=== PATIENT | female | born 1985 | race Caucasian/White ===

== ENCOUNTER 2017-03-07 06:09 | Emergency (ER) | payer OTHER ==
[~2017-03-07] VITALS: Ht 167.6 cm; Wt 111.5 kg
[~2017-03-07 06:09] MED LIST: CEPH-443 PO; FOL8 PO; METO-429 PO; PREN-39 PO
[2017-03-07 06:15] VITALS: Ht 167.6 cm; Wt 111.5 kg
--- NOTE | 2017-03-07 07:05 | RADRPT ---
PROCEDURE: XR Forearm. CLINICAL INDICATION: trauma TECHNIQUE: AP and lateral views of the right forearm were obtained. COMPARISON: No prior studies are available for comparison. FINDINGS: No fracture or dislocation is seen. No definite lytic or blastic bony lesion. No definite soft tis angelina abnormality. No definite calcification or foreign body. IMPRESSION: No definite acute bony abnormality. RPTAT: [facility] Physician Anish Date Time Electronically viewed and signed by Tatyana Rodriguez Physician on 03/07/2017 07:05 ALAN/
--- NOTE | 2017-03-07 07:08 | RADRPT ---
PROCEDURE: Right hand x-ray CLINICAL INDICATION: trauma TECHNIQUE: AP, lateral and oblique views were obtained. COMPARISON: None FINDINGS: No definite fracture or dislocation is seen. Bone mineralization is preserved. No marked degenerat hira change. No abnormal soft tissue calcifications.. Incidental bone island of the capitate. IMPRESSION: No definite acute bony abnormality. RPTAT: [facility] Physician Anish Date Time Electronically viewed and signed by Tatyana Rodriguez Physician on 03/07/2017 07:07 ALAN/
[2017-03-07] MEDS ORDERED: IBUP-1542 PO (07:17)
--- NOTE | 2017-03-07 07:19 | ERD ---
ER Documentation Chief Complaint Date/Time DATE: 03/07/17 TIME: 07:18 Chief Complaint right hand pain s/p injury at work HPI is 32-year-old female presents with right hand and distal forearm pain after heavy object fell on her right upper extremity yesterday while at work. She states she has full range of motion so she does not think it is broken but she is not sure. Denies any numbness or tingling. She took Motrin. No head injury or KO. No other complaints. ROS All systems reviewed and are negative except as per history of present illness. Medications Home Meds Active Scripts Ibuprofen* (Motrin*) 600 Mg Tab, 600 MG PO Q6, #30 TAB Prov:JAJA GARRISON PA-C 03/07/17 Cephalexin* (Keflex*) 500 Mg Capsule, 500 MG PO QID for 7 Days, CAP Prov:JAZMÍN LEACH PA-C 12/25/15 Metoprolol Tartrate* (Lopressor*) 50 Mg Tab, 50 MG PO BID, #60 TAB Prov:JAZMÍN LEACH PA-C 12/25/15 Reported Medications Folic Acid* (Folic Acid*) 0.8 Mg Tablet, 0.8 MG PO DAILY, TAB 08/28/15 Vits W-Ca,Fe,Fa(<1MG) ( Vitamins) 1 Tab Tablet, 1 TAB PO DAILY , TAB 08/28/15 Allergies Allergies: Coded Allergies: No Known Allergy (Unverified , 03/07/17) PMhx/Soc History of Surgery: No Anesthesia Reaction: No Hx Neurological Disorder: No Hx Respiratory Disorders: No Hx Cardiac Disorders: No Hx Psychiatric Problems: No Hx Miscellaneous Medical Probl: Yes (left ovarian cyst,gestational diabetes, gestational HTN) Hx Alcohol Use: No Hx Substance Use: No Hx Tobacco Use: No FmHx Family History: No diabetes Physical Exam Vitals Vital Signs Date Time Temp Pulse Resp B/P Pulse Ox O2 Delivery O2 Flow Rate FiO2 03/07/17 06:15 98.1 73 18 138/93 100 Physical Exam INITIAL VITAL SIGNS: Reviewed by me GENERAL: Awake, alert and oriented x 4, well appearing, nontoxic, speaking in full sentences. No acute distress NECK: Supple. No masses. Full range of motion. No meningismus. No midline tenderness. RESPIRATORY: Clear to auscultation bilaterally. Symmetric chest wall rise. No wheezing or rales. No accessory muscle use. CV: Regular rate and rhythm. No murmurs, rubs, or gallops. EXTREMITIES: No clubbing or cyanosis. No edema. Moving all extremities normally.No tenderness throughout right upper extremity, sensation to light touch is intact, radial pulse 2+, transportation attendant strength 5 out of 5 Procedures/MDM Patient has right forearm and hand pain after trauma yesterday. She is neurovascularly intact. X-rays were negative. She is discharged with Motrin. Patient counseled regarding my diagnostic impression and care plan. Prior to discharge all questions answered. Pt agrees with treatment plan and understands strict return precautions. Pt is instructed to follow up with primary care provider within 24-48 hours. Precautionary instructions provided including instructions to return to the ER if not improving or for any worsening or changing symptoms or concerns. Departure Diagnosis: Primary Impression: Hand contusion Condition: Stable Patient Instructions: Crush Injury, Hand/Finger Additional Instructions: Call your primary care doctor TOMORROW for an appointment during the next 1-2 days.See the doctor sooner or return here if your condition worsens before your appointment time. JAJA GARRISON PA-C Mar 07, 2017 07:19
== END 2017-03-07 08:00 | disposition home or self-care (01) ==
LOC: FTE 06:09
DX: S60.221A Contusion of right hand, initial encounter (principal); W20.8XXA Other cause of strike by thrown, projected or falling object, initial encounter; Y92.9 Unspecified place or not applicable

== ENCOUNTER 2018-01-18 04:52 | Emergency (ER) | END 2018-01-18 07:43 | disposition home or self-care (01) ==

== ENCOUNTER 2018-02-20 16:40 | Emergency (ER) | END 2018-02-20 21:05 | disposition home or self-care (01) ==

== ENCOUNTER 2018-05-03 21:08 | Outpatient (CLI) | END 2018-05-03 22:06 | disposition home or self-care (01) ==

== ENCOUNTER 2018-06-14 10:49 | Outpatient (CLI) | END 2018-06-14 13:00 | disposition home or self-care (01) ==

== ENCOUNTER 2018-06-17 11:06 | Outpatient (CLI) | payer OTHER ==
[~2018-06-17] VITALS: Ht 165.1 cm; Wt 160.0 kg
[~2018-06-17 11:06] MED LIST changes: -CEPH-443 PO; -FOL8 PO; -METO-429 PO
[2018-06-17 11:31] VITALS: Ht 165.1 cm; Wt 160.0 kg
[2018-06-17 11:32] VITALS: BP 114/70; PULSE 81; RESP 20
--- NOTE | 2018-06-17 13:13 | TRIAGE ---
OB Triage Datetime Report Generated by CPN: 06/17/2018 13:13 Datetime: 06/17/2018 11:34 Time of Arrival: 06/17/2018 11:00 EGA: 30.4 Arrived By: Ambulatory Arrived From: Home Chief Complaint: pt here for repeat ffn pt wa here on 06/14 and had a positive ffn per order dr arce pt was dcd home and told to return today for repeat ffn Movement: Decreased Rupture of Membranes: Denies Vaginal Bleeding: None Vaginal Discharge: Denies Recent Sexual Intercouse: Denies Abdominal Trauma: Not Applicable Patient Complaints: None Provider Notified: dsr yazmin Maternal Assessment Level of Consciousness: Fully Conscious Maternal Assessment Level of Consciousness: Fully Conscious DTR's/Clonus: DTRs 2+ DTR's/Clonus: DTRs 2+; No Clonus Headache: Denies Headache: Denies Blurred Vision: No Blurred Vision: No Respiratory Effort: Unlabored; Regular Rhythm; Equal Expansion Breath Sounds, Left: Clear and Equal Breath Sounds, Right: Clear and Equal Nausea/Vomiting: Present Nausea/Vomiting: Denies RUQ Epigastric Pain: Denies RUQ Epigastric Pain: Denies Facial Edema: None Facial Edema: None Temperature Route: Axillary Fall Risk Assessment History of Falling: (0) No Secondary Diagnosis: (0) No Ambulatory Aid: (0) Bedrest/Nurse Assist IV Therapy: (0) No Gait: (0) Normal/Bedrest/Immobile Mental Status: (0) Oriented to Own Ability Fall Score: 0 Fall Risk Score Definition: No Risk: No action required Labor Evaluation Frequency: NONE Pattern: Normal: <= 5 Contractions in 10 Minutes Heart Rate FHR Baseline Rate: 155 Monitor Mode: External US FHR Baseline Changes: No Baseline Change Variability: Moderate 6-25 bpm Accelerations: 15X15 Decelerations: None Category: Category I Pain Assessment Pain Scale: 0 Pain Presence: None/Denies Pain Type: N/A Pain Goal: 0 Vaginal Exam Membrane Status: Intact Datetime: 06/14/2018 11:22 EGA: 30.1 Datetime: 06/14/2018 11:06 Fall Score: 0 Fall Risk Score Definition: No Risk: No action required Datetime: 06/14/2018 10:59 EGA: 30.1 Datetime: 05/03/2018 21:43 EGA: 24.1 Datetime: 05/03/2018 21:28 Fall Score: 0 Fall Risk Score Definition: No Risk: No action required
--- NOTE | 2018-06-17 13:50 | PN ---
Triage Information Date/Time 06/17/18 Reason for visit: for repeat FFN Weeks of Gestation 30w4d /Para Diabetes: none Hypertention: none Additional information here for f/u FFN since previous visit FFN was pos Objective Vital Signs Date Temp Pulse Resp B/P (MAP) Pulse Ox O2 O2 Flow FiO2 Time Delivery Rate 06/17/18 98.2 81 20 114/70 Room Air 11:32 (85) Heart Rate: 150's Heart Rate Comments CAT I tracing Results/Medications Results 24 hrs Laboratory Tests Test 06/17/18 11:25 Fibronectin NEGATIVE Imaging Results BPP 8/8 NADIRA 15cm Disposition: Discharge Assessment/Plan A [id number].[id number] FFN f/u P discharge home RTH prn RANJEET TELLEZ MD Jun 17, 2018 13:50
== END 2018-06-17 13:00 | disposition home or self-care (01) ==
LOC: OBT 11:06 → L-D 11:08 → OBT 13:00
PROVIDERS: ATTEND Obstetrics & Gynecology
DX: O28.1 Abnormal biochemical finding on antenatal screening of mother (principal); Z3A.30 30 weeks gestation of pregnancy
CPT/HCPCS: 76818; 82731; Z7500; G0463

== ENCOUNTER 2018-07-02 11:26 | Outpatient (CLI) | payer OTHER ==
[~2018-07-02] VITALS: Ht 165.1 cm; Wt 117.3 kg
[2018-07-02 11:49] VITALS: Ht 165.1 cm; Wt 117.3 kg
--- NOTE | 2018-07-02 13:22 | PN ---
Triage Information Date/Time Reason for visit: Uterine contractions Weeks of Gestation 32+ /Para 2/1 Diabetes: none Hypertention: none Objective Heart Rate: 140's Contractions: None Results/Medications Results 24 hrs Laboratory Tests Test 07/02/18 12:05 07/02/18 12:10 Fibronectin NEGATIVE Urine Color YELLOW Urine Clarity CLOUDY A Urine pH 6.0 Urine Specific [place] 1.026 Urine Ketones NEGATIVE Urine Nitrite NEGATIVE Urine Bilirubin NEGATIVE Urine Urobilinogen NEGATIVE Urine Leukocyte Esterase TRACE A Urine Microscopic RBC 4 Urine Microscopic WBC 4 Urine Squamous Epithelial Cells MODERATE Urine Bacteria FEW A Urine Hemoglobin NEGATIVE Urine Glucose NEGATIVE Urine Total Protein NEGATIVE Disposition: Discharge Assessment/Plan CXL3.9 cm FFN neg Discharge with precautions Questions answered Precautions discussed DILSHAD PINEDA M.D. Jul 02, 2018 13:22
--- NOTE | 2018-07-02 14:29 | TRIAGE ---
OB Triage Datetime Report Generated by CPN: 07/02/2018 14:28 Datetime: 07/02/2018 14:00 Stage of : OB Triage Maternal Assessment Level of Consciousness: Fully Conscious DTR's/Clonus: DTRs 1+ Headache: Denies Breath Sounds, Left: Clear and Equal Breath Sounds, Right: Clear and Equal Nausea/Vomiting: Denies RUQ Epigastric Pain: Denies Labor Evaluation Frequency: NONE Monitor Mode: External Resting Tone [place]: Relaxed Heart Rate FHR Baseline Rate: 140 Monitor Mode: External US Variability: Moderate 6-25 bpm Accelerations: 15X15 Decelerations: None Category: Category I Pain Assessment Pain Scale: 0 Pain Goal: 3 Vaginal Exam Membrane Status: Intact Datetime: 07/02/2018 13:00 Stage of : OB Triage Maternal Assessment Level of Consciousness: Fully Conscious DTR's/Clonus: DTRs 1+ Headache: Denies Breath Sounds, Left: Clear and Equal Breath Sounds, Right: Clear and Equal Nausea/Vomiting: Denies RUQ Epigastric Pain: Denies Monitor Mode: External Resting Tone [place]: Relaxed Heart Rate FHR Baseline Rate: 140 Monitor Mode: External US Variability: Moderate 6-25 bpm Accelerations: 15X15 Decelerations: None Category: Category I Pain Assessment Pain Scale: 5 Pain Presence: Intermittent Pain Type: Cramping Pain Location: Back Pain Goal: 3 Vaginal Exam Membrane Status: Intact Datetime: 07/02/2018 12:00 Maternal Assessment Level of Consciousness: Fully Conscious DTR's/Clonus: DTRs 1+ Headache: Denies Blurred Vision: No Respiratory Effort: Unlabored Breath Sounds, Left: Clear and Equal Breath Sounds, Right: Clear and Equal Nausea/Vomiting: Denies RUQ Epigastric Pain: Denies Facial Edema: None Labor Evaluation Frequency: X2 Monitor Mode: External Duration (sec)2399: 50-60 Quality: Mild Pattern: Normal: <= 5 Contractions in 10 Minutes Resting Tone [place]: Relaxed Heart Rate FHR Baseline Rate: 140 Monitor Mode: External US Variability: Moderate 6-25 bpm Accelerations: 15X15 Decelerations: None Category: Category I Pain Assessment Pain Scale: 5 Pain Presence: Intermittent Pain Type: Cramping Pain Location: Back Pain Goal: 3 Vaginal Exam Membrane Status: Intact Datetime: 07/02/2018 11:30 Assessment Type: Triage Maternal Assessment Level of Consciousness: Fully Conscious DTR's/Clonus: DTRs 2+; No Clonus Headache: Denies Blurred Vision: No Respiratory Effort: Unlabored; Regular Rhythm; Equal Expansion Breath Sounds, Left: Clear and Equal Breath Sounds, Right: Clear and Equal Nausea/Vomiting: Denies RUQ Epigastric Pain: Denies Lower Extremities Edema: None Degree: None Upper Extremities Edema: None Degree: None Facial Edema: None Fall Risk Assessment History of Falling: (0) No Secondary Diagnosis: (0) No Ambulatory Aid: (0) Bedrest/Nurse Assist IV Therapy: (0) No Gait: (0) Normal/Bedrest/Immobile Mental Status: (0) Oriented to Own Ability Fall Score: 0 Fall Risk Score Definition: No Risk: No action required Datetime: 07/02/2018 11:20 Time of Arrival: 07/02/2018 11:20 EGA: 32.5 Arrived By: Ambulatory Arrived From: Home Chief Complaint: PT CAME IN C/O HAVING SOME UC'S AND C/O FEELING SOME PULLING OF HER UMBILICUS SINC E THIS AM. DENIES ANY BLEEDING AND STATES + MOVE,ENT Movement: Present Contractions: Denies/Absent Rupture of Membranes: Denies Vaginal Discharge: Denies Recent Sexual Intercouse: Denies Abdominal Trauma: Not Applicable Additional Patient Complaints: NONE Time Provider Notified: 07/02/2018 11:50 Provider Notified: GODWIN Initial Plan: MONITOR Datetime: 06/17/2018 11:34 EGA: 30.4 Fall Score: 0 Fall Risk Score Definition: No Risk: No action required Datetime: 06/14/2018 11:22 EGA: 30.1 Datetime: 06/14/2018 11:06 Fall Score: 0 Fall Risk Score Definition: No Risk: No action required Datetime: 06/14/2018 10:59 EGA: 30.1 Datetime: 05/03/2018 21:43 EGA: 24.1 Datetime: 05/03/2018 21:28 Fall Score: 0 Fall Risk Score Definition: No Risk: No action required
== END 2018-07-02 13:24 | disposition home or self-care (01) ==
LOC: OBT 11:26 → L-D 11:27 → OBT 13:24
PROVIDERS: ATTEND Obstetrics & Gynecology
DX: O62.9 Abnormality of forces of labor, unspecified (principal); Z3A.32 32 weeks gestation of pregnancy
CPT/HCPCS: 76817; 76818; 81001; 82731; Z7500; G0463

== ENCOUNTER 2018-07-10 11:35 | Outpatient (CLI) | payer OTHER ==
[~2018-07-10] VITALS: Ht 165.1 cm; Wt 118.4 kg
[2018-07-10 11:47] VITALS: BP 123/76; PULSE 88; RESP 19; Ht 165.1 cm; Wt 118.4 kg
[2018-07-10] MEDS ORDERED: ACETAMINOPHEN 325 MG TAB ONE (12:24)
[2018-07-10] MEDS ORDERED: ACETAMINOPHEN 325 MG TAB PO ONE (12:30)
--- NOTE | 2018-07-10 13:40 | PN ---
Triage Information Date/Time Reason for visit: R/o PIH Weeks of Gestation 32+ /Para n/a Diabetes: none Hypertention: none Objective Vital Signs Date Temp Pulse Resp B/P (MAP) Pulse Ox O2 O2 Flow FiO2 Time Delivery Rate 07/10/18 98.2 88 19 123/76 Room Air 11:47 (92) Heart Rate: 140's Contractions: None Results/Medications Result Diagram: 07/10/18 1200 07/10/18 1200 Results 24 hrs Laboratory Tests Test 07/10/18 12:00 White Blood Count 8.9 # Red Blood Count 3.87 L Hemoglobin 11.7 L Hematocrit 35.3 L Mean Corpuscular Volume 91.2 Mean Corpuscular Hemoglobin 30.2 Mean Corpuscular Hemoglobin Concent 33.1 Red Cell Distribution Width 12.9 Platelet Count 282 Mean Platelet Volume 9.7 Immature Granulocytes % 1.000 H Neutrophils % 77.5 H Lymphocytes % 15.1 Monocytes % 5.0 Eosinophils % 1.2 Basophils % 0.2 Nucleated Red Blood Cells % 0.0 Immature Granulocytes # 0.090 H Neutrophils # 6.9 Lymphocytes # 1.3 Monocytes # 0.4 Eosinophils # 0.1 Basophils # 0.0 Nucleated Red Blood Cells # 0.0 Prothrombin Time 12.7 Prothrombin Time Ratio 1.0 INR International Normalized Ratio 0.94 Activated Partial Thromboplast Time 26.6 Urine Color YELLOW Urine Clarity CLOUDY A Urine pH 7.0 Urine Specific [place] 1.012 Urine Ketones NEGATIVE Urine Nitrite NEGATIVE Urine Bilirubin NEGATIVE Urine Urobilinogen NEGATIVE Urine Leukocyte Esterase 2+ H Urine Microscopic RBC 2 Urine Microscopic WBC 9 H Urine Squamous Epithelial Cells MANY A Urine Renal Epithelial Cells FEW A Urine Bacteria MANY A Urine Mucus FEW A Urine Hemoglobin NEGATIVE Urine Glucose NEGATIVE Urine Total Protein NEGATIVE Sodium Level 139 Potassium Level 4.6 Chloride Level 103 Carbon Dioxide Level 25 Anion Gap 11 Blood Urea Nitrogen 8 Creatinine 0.55 Est Glomerular Filtrat Rate mL/min > 60 Glucose Level 151 Uric Acid 6.2 Calcium Level 9.4 Total Bilirubin 0.2 Direct Bilirubin 0.00 Indirect Bilirubin 0.2 Aspartate Amino Transf (AST/SGOT) 17 Alanine Aminotransferase (ALT/SGPT) 15 Alkaline Phosphatase 74 Total Protein 7.2 Albumin 3.7 Globulin 3.50 H Albumin/Globulin Ratio 1.05 Disposition: Discharge Assessment/Plan [facility] 04/05 Labs reviewed Precautions discussed 24 hr urine collection -->Discharged with precautions --->Questions answered -->Follow up with provider DILSHAD PINEDA M.D. Jul 10, 2018 13:40
--- NOTE | 2018-07-10 13:59 | TRIAGE ---
OB Triage Datetime Report Generated by CPN: 07/10/2018 13:58 Datetime: 07/10/2018 12:15 Labor Evaluation Frequency: 0 Monitor Mode: External Heart Rate FHR Baseline Rate: 145 Monitor Mode: External US FHR Baseline Changes: No Baseline Change Variability: Moderate 6-25 bpm Accelerations: 15X15 Decelerations: None Category: Category I Comments: Dr. Leary was informed of pt's arrival to unit to r/o PIH. Pt c/o headache 10/04. New ord er for PIH labs and tylenol 650mg x1 Pain Presence: None/Denies Datetime: 07/10/2018 11:57 Stage of : OB Triage Assessment Type: Triage Maternal Assessment Level of Consciousness: Fully Conscious DTR's/Clonus: DTRs 2+; No Clonus Blurred Vision: No Respiratory Effort: Unlabored; Regular Rhythm; Equal Expansion Breath Sounds, Left: Clear and Equal Breath Sounds, Right: Clear and Equal Nausea/Vomiting: Denies RUQ Epigastric Pain: Denies Lower Extremities Edema: None Upper Extremities Edema: None Facial Edema: None Temperature Route: Oral Fall Risk Assessment History of Falling: (0) No Secondary Diagnosis: (0) No Ambulatory Aid: (0) Bedrest/Nurse Assist IV Therapy: (0) No Gait: (0) Normal/Bedrest/Immobile Mental Status: (0) Oriented to Own Ability Fall Score: 0 Fall Risk Score Definition: No Risk: No action required Pain Assessment Pain Scale: 4 Pain Presence: Intermittent Pain Type: Ache Pain Location: Head Pain Goal: 5 Pain Relief Measures: Comfort Measures Datetime: 07/10/2018 11:25 Time of Arrival: 07/10/2018 11:25 EGA: 33.6 Arrived By: Ambulatory Arrived From: Dr. Hollins Chief Complaint: Sent from clinic to R/O PI Movement: Present Contractions: Denies/Absent Rupture of Membranes: Denies Vaginal Bleeding: None Vaginal Discharge: Denies Recent Sexual Intercouse: Denies Abdominal Trauma: Not Applicable Patient Complaints: Headache Additional Patient Complaints: headache Time Provider Notified: 07/10/2018 13:07 Provider Notified: GODWIN Initial Plan: NST, BPP, PIH labs Datetime: 07/02/2018 11:30 Fall Score: 0 Fall Risk Score Definition: No Risk: No action required Datetime: 07/02/2018 11:20 EGA: 32.5 Datetime: 06/17/2018 11:34 EGA: 30.4 Fall Score: 0 Fall Risk Score Definition: No Risk: No action required Datetime: 06/14/2018 11:22 EGA: 30.1 Datetime: 06/14/2018 11:06 Fall Score: 0 Fall Risk Score Definition: No Risk: No action required Datetime: 06/14/2018 10:59 EGA: 30.1 Datetime: 05/03/2018 21:43 EGA: 24.1 Datetime: 05/03/2018 21:28 Fall Score: 0 Fall Risk Score Definition: No Risk: No action required
== END 2018-07-10 13:30 | disposition home or self-care (01) ==
LOC: OBT 11:35 → L-D 11:44 → OBT 13:30
PROVIDERS: ATTEND Obstetrics & Gynecology
DX: O13.3 Gestational [pregnancy-induced] hypertension without significant proteinuria, third trimester (principal); Z3A.32 32 weeks gestation of pregnancy
CPT/HCPCS: 76818; 80053; 81001; 84560; 85025; 85610; 85730; Z7500; Z7610; G0463

== ENCOUNTER 2018-08-16 12:00 | Inpatient (IN) | payer OTHER ==
[~2018-08-16] VITALS: Ht 165.1 cm; Wt 121.6 kg
[2018-08-16 13:42] VITALS: Ht 165.1 cm; Wt 121.6 kg
[2018-08-16 13:43] VITALS: BP 133/89; PULSE 86
[2018-08-16] MEDS ORDERED: LACTATED RINGER'S 1,000 ML IV PRN (13:53)
[2018-08-16] MEDS ORDERED: IBUPROFEN 600 MG TAB PO PRN (14:00)
[2018-08-16] MEDS ORDERED: METHYLERGONOVINE 0.2 MG INJ IM PRN (14:00)
[2018-08-16] MEDS ORDERED: OXYTOCIN 30 UNITS/LR 500 ML IV PRN (14:00)
[2018-08-16] MEDS ORDERED: OXYTOCIN 30 UNITS/LR 500 ML IV SCH ×2 (14:00)
[2018-08-16] MEDS ORDERED: MISOPROSTOL 200 MCG TAB PR PRN (14:00)
[2018-08-16] MEDS ORDERED: BUTORPHANOL 2 MG INJ IV PRN (14:00)
[2018-08-16] MEDS ORDERED: OXYCODONE/ASPIRIN (4.88/325) TAB PO PRN (14:00)
[2018-08-16] MEDS ORDERED: LIDOCAINE 1% (MPF) 30 ML INJ INJ PRN (14:00)
[2018-08-16] MEDS ORDERED: CARBOPROST 250 MCG INJ IM PRN (14:00)
[2018-08-16] MEDS: LACTATED RINGER'S 1,000 ML IV SCH ×2 (15:14→22:29)
[2018-08-16] MEDS: OXYTOCIN 30 UNITS/LR 500 ML IV SCH (18:24)
[2018-08-16] MEDS ORDERED: CEFAZOLIN 2 GM/50 ML (PMX) 50 ML IVPB ONE (18:41)
--- NOTE | 2018-08-16 18:45 | PREAC ---
Date/Time of Note Date/Time of Note DATE: 08/16/18 TIME: 18:44 Anesthesia Eval and Record Evaluation Time Pre-Procedure Interview DATE: 08/16/18 TIME: 18:44 Age 33 Sex female NPO: 8 hrs Preoperative diagnosis iup at 38 weeks Planned procedure repeat c section Past Medical History Past Medical History: Includes GI: Obesity Surgery & Anesthesia Issues No known issue Meds Anticoagulation: No Beta Brenda within 24 hr: No Reason Beta Brenda not given: Pt. not on B-Brenda Reported Medications Vits W-Ca,Fe,Fa(<1MG) ( Vitamins) 1 Tab Tablet, 1 TAB PO DAILY, TAB 08/28/15 Current Medications Lactated Ringer's 1,000 ml @ 125 mls/hr Q8H IV Last administered on 08/16/18at 15:14; Admin Dose 125 MLS/HR; Start 08/16/18 at 13:53 Butorphanol Tartrate (Stadol) 2 mg Q2H PRN IV .PAIN; Start 08/16/18 at 14:00 Lidocaine (Xylocaine 1% (Mpf)) 30 ml ONCE PRN INJ .EPISIOTOMY; Start 08/16/18 at 14:00 Oxytocin/Lactated Ringer's 500 ml @ 500 mls/hr ONCE POST IV ; Start 08/16/18 at 14:00 Oxytocin/Lactated Ringer's 500 ml @ 125 mls/hr POST IV ; Start 08/16/18 at 14:00 Ibuprofen (Motrin) 600 mg ONCE PRN PO .PAIN 1-5; Start 08/16/18 at 14:00 Oxycodone/Aspirin (Percodan) 2 tab ONCE PRN PO .PAIN 6-10; Start 08/16/18 at 14:00 Lactated Ringer's 1,000 ml @ 2,000 mls/hr Q30M PRN IV .ANESTHESIA; Start 08/16/18 at 13:53 Oxytocin/Lactated Ringer's 500 ml @ 0 mls/hr ONCE PRN IV .VAGINAL BLEEDING; Start 08/16/18 at 14:00 Methylergonovine Maleate (Methergine) 0.2 mg ONCE PRN IM .VAGINAL BLEEDING; Start 08/16/18 at 14:00 Carboprost Tromethamine (Hemabate) 250 mcg ONCE PRN IM .VAGINAL BLEEDING; Start 08/16/18 at 14:00 Misoprostol (Cytotec) 1,000 mcg ONCE PRN AK .VAGINAL BLEEDING; Start 08/16/18 at 14:00 Oxytocin/Lactated Ringer's 500 ml @ 0 mls/hr Q0M IV Last administered on 08/16/18at 18:24; Admin Dose 1 MLS/HR; Start 08/16/18 at 18:30 Meds reviewed: Yes Allergies Coded Allergies: No Known Allergy (Unverified , 07/10/18) Allergies Reviewed: Yes Labs/Studies Labs Reviewed: Reviewed by anesthesiologist Result Diagram: 08/16/18 1436 08/16/18 1436 Laboratory Tests 08/16/18 14:36 Blood Bank Test 08/16/18 14:36 Antibody Screen NEGATIVE Blood Type B POSITIVE Rh Immune Globulin Candidate NO test: Positive Pre-procedure Exam Last vitals Vital Signs Date Temp Pulse Resp B/P (MAP) Pulse Ox O2 O2 Flow FiO2 Time Delivery Rate 08/16/18 98.5 86 133/89 Room Air 13:43 (104) Airway: Adequate mouth opening, Adequate thyromental dist Mallampati: Mallampati II Teeth: Normal Lung: Normal Heart: Normal ASA Physical Status ASA physical status: 2 Emergency: None Planned Anesthetic Neuraxial: Spinal Planned Pain Management Sub-arachniod narcotics, Parenteral pain med Pre-operative Attestations Prior to commencing anesthesia and surgery, the patient was re-evaluated, there was verification of: *The patient's identity *The results of appropriate recent lab work and preoperative vital signs *The above evaluation not changing prior to induction *Anesthetic plan, risk benefits, alternative and complications discussed with patient/family; questions answered; patient/family understands, accepts and wishes to proceed. JAJA BAZZI Aug 16, 2018 18:45
[2018-08-16] MEDS ORDERED: DEXAMETHASONE 4 MG/ML 1 ML INJ ONE (19:05)
[2018-08-16] MEDS ORDERED: ONDANSETRON 4 MG INJ ONE (19:05)
[2018-08-16] MEDS ORDERED: morphine SULFATE/PF (10 MG/10 ML) INJ ONE (19:26)
[2018-08-16] MEDS ORDERED: FENTAnyl 2MCG/ML-ROPIV 0.2% 100 ML ONE (21:52)
[2018-08-16] MEDS: FENTAnyl 2MCG/ML-ROPIV 0.2% 100 ML BAG EPI SCH (22:29)
[2018-08-16] MEDS ORDERED: DIPHENHYDRAMINE 50 MG INJ IV PRN (22:30)
[2018-08-16] MEDS ORDERED: ONDANSETRON 4 MG INJ IV PRN (22:30)
[2018-08-16] MEDS ORDERED: NALOXONE (0.4 MG/ML) INJ IV PRN (22:30)
[2018-08-17] MEDS: LACTATED RINGER'S 1,000 ML IV SCH ×3 (05:22→21:42)
[2018-08-17] MEDS: FENTAnyl 2MCG/ML-ROPIV 0.2% 100 ML BAG EPI SCH ×3 (06:27→22:49)
--- NOTE | 2018-08-17 11:00 | HP ---
Date/Time of Note Date/Time of Note DATE: 08/17/18 TIME: 10:59 OB - History Hx of Present Chief Complaint: induction for elevated BP in the office : 3 Para: 2 Care: Good Care Ultrasounds: Normal mid trimester US Obstetrical Complications: Pre-eclampsia Medical Complications: None Past Family/Social History * Past Medical, Surgical, Family and Obstetric Histories reviewed from chart. OB Admission Exam Vital Signs Vital Signs Vital Signs Date Temp Pulse Resp B/P (MAP) Pulse Ox O2 O2 Flow FiO2 Time Delivery Rate 08/16/18 98.5 86 133/89 Room Air 13:43 (104) Physical Exam HEENT: WNL Heart: Rhythm Normal Lungs: Clear, Equal Abdomen: WNL Extremities: Normal Reflexes: Normal Cervical Dilatation: 2cm Effacement: 25% Station: Ballotable Membranes: Intact Heart Rate: 120's Accelerations: Accelerations Present Decelerations: No Decelerations Varibility: Moderate Contractions on Admission: 6-10 Minutes Apart Intensity: Mild Last 72 hours Lab Results CBC & BMP 08/16/18 14:36 Liver Function Test 08/16/18 14:36 Alanine Aminotransferase (ALT/SGPT) 17 Albumin 3.3 Alkaline Phosphatase 90 Aspartate Amino Transf (AST/SGOT) 19 Direct Bilirubin 0.00 Total Protein 6.5 OB Assessment/Plan Reason for admission: induction of labor Plan: Induction VIVI CONNELLY MD Aug 17, 2018 11:00
--- NOTE | 2018-08-17 11:02 | QN ---
Documentation Comment attempted to AROM but was unsuccessful due to the blotable head. will continue with pitocin explained the situation to the patient tracing category 1 pitocin is at 13 mu VIVI CONNELLY MD Aug 17, 2018 11:02
[2018-08-18] MEDS: LACTATED RINGER'S 1,000 ML IV SCH ×4 (01:59→23:32)
[2018-08-18] MEDS: OXYTOCIN 30 UNITS/LR 500 ML IV SCH (04:32)
[2018-08-18] MEDS: FENTAnyl 2MCG/ML-ROPIV 0.2% 100 ML BAG EPI SCH ×2 (05:31→13:36)
--- NOTE | 2018-08-18 07:45 | PAC ---
Date/Time of Note Date/Time of Note DATE: 08/18/18 TIME: 07:44 Post-Anesthesia Notes Post-Anesthesia Note Last documented vital signs Vital Signs Date Temp Pulse Resp B/P (MAP) Pulse Ox O2 O2 Flow FiO2 Time Delivery Rate 08/17/18 98.5 86 133/89 Room Air 13:43 (104) Activity: WNL Respiratory function: WNL Cardiovascular function: WNL Mental status: Baseline Pain reasonably controlled: Yes Hydration appropriate: Yes Nausea/Vomiting absent: Yes JAJA BAZZI Aug 18, 2018 07:45
[2018-08-18] MEDS ORDERED: AMPICILLIN 2 GM/NS (PMX) 100 ML ONE (07:49)
[2018-08-18] MEDS ORDERED: AMPICILLIN 2 GM/NS (PMX) 100 ML IVPB ONE (08:00)
--- NOTE | 2018-08-18 11:05 | QN ---
Documentation Comment requested to insert for IUPC for frequent variable deceleration for amnio infusion variable dec is short but down to 80's VE 5//-3 ruptured bag IUPC inserted without nay difficulty RANJEET TELLEZ MD Aug 18, 2018 11:05
[2018-08-18] MEDS ORDERED: AMPICILLIN 1 GM/NS (PMX) 50 ML IVPB SCH (12:00)
[2018-08-18] MEDS ORDERED: MAGNESIUM SULFATE 4 GM/100 ML 100 ML IVPB ONE (13:45)
[2018-08-18] MEDS: MAGNESIUM SULFATE 20 GM/500 ML 500 ML IV SCH (14:19)
[2018-08-18] MEDS ORDERED: MINERAL OIL LIGHT 10 ML VIAL TOP ONE (15:30)
--- NOTE | 2018-08-18 17:02 | LDN ---
Date/Time of Note Date/Time of Note DATE: 08/18/18 TIME: 17:00 Delivery Summary of normal female Weeks of Gestation 39w4d Placenta Delivered: Spontaneously Meconium: Thick Episiotomy: No Perineal laceration: 1 Laceration repair: 000 ch gut Anesthesia type: Epidural Estimated blood loss: 95 Sponge & Needle done & correct: Yes All needle counts correct: Yes Any foreign bodies felt in the: No Delivery Information Sex Infant Sex: female Apgars 1 Minute: 8 5 Minute: 9 Suctioning Nose & mouth suctioned at ruiz: Yes Delee suction performed: Yes Umbilical Cord Umbilical cord with: 3 Vessels Cord presentations: no nuchal cord Cord Blood was obtained: Yes Mother & Baby Disposition Disposition Mom & Baby to Maternity; Good: Yes Mom transferred to: Other Baby to NICU: No () RANJEET TELLEZ MD Aug 18, 2018 17:02
[2018-08-18 18:15] VITALS: BP 137/70; PULSE 60; RESP 18
[2018-08-18] MEDS ORDERED: OXYTOCIN 30 UNITS/LR 500 ML IV PRN (18:30)
[2018-08-18] MEDS ORDERED: WITCH HAZEL/GLYCERIN PAD PR PRN (18:30)
[2018-08-18] MEDS ORDERED: METHYLERGONOVINE 0.2 MG INJ IM PRN (18:30)
[2018-08-18] MEDS ORDERED: LANOLIN HPA 1 PKT TOP PRN (18:30)
[2018-08-18] MEDS ORDERED: CARBOPROST 250 MCG INJ IM PRN (18:30)
[2018-08-18] MEDS ORDERED: MISOPROSTOL 200 MCG TAB PR PRN (18:30)
[2018-08-18] MEDS ORDERED: ZOLPIDEM 5 MG TAB PO PRN (18:30)
[2018-08-18] MEDS ORDERED: BENZOCAINE 20% 56 ML SPRAY TOP PRN (18:30)
[2018-08-18] MEDS ORDERED: OXYCODONE/ASPIRIN (4.88/325) TAB PO PRN ×2 (18:30)
[2018-08-18 19:30] VITALS: BP 136/76; PULSE 79; RESP 19
[2018-08-18 20:30] VITALS: BP 125/59; RESP 18
[2018-08-18 21:30] VITALS: BP 136/70; RESP 18
[2018-08-18] MEDS: SENNA/DOCUSATE NA (8.6MG/50MG) TAB PO SCH (21:38)
[2018-08-18 22:30] VITALS: BP 129/73; RESP 19
[2018-08-18 23:30] VITALS: BP 127/71; RESP 18
[2018-08-18] MEDS: IBUPROFEN 600 MG TAB PO SCH (23:48)
[2018-08-19] VITALS (18 sets, daily range): BP systolic 116–159; BP diastolic 60–96; PULSE 63–79; RESP 18–20
[2018-08-19] MEDS: MAGNESIUM SULFATE 20 GM/500 ML 500 ML IV SCH ×3 (01:17→20:15)
[2018-08-19] MEDS: IBUPROFEN 600 MG TAB PO SCH ×3 (05:36→18:21)
[2018-08-19] MEDS: SENNA/DOCUSATE NA (8.6MG/50MG) TAB PO SCH ×2 (10:05→20:54)
[2018-08-19] MEDS: LACTATED RINGER'S 1,000 ML IV SCH ×2 (12:08→21:53)
--- NOTE | 2018-08-19 15:49 | QN ---
Documentation Comment no complaints except afterpain vss afebrile fundus firm lochia mod ext edema reduced calf neg for tenderness output adequate A s/p #1 P discontinue Mg sulfate 1500 discharge home in am RANJEET TELLEZ MD Aug 19, 2018 15:49
[2018-08-19] MEDS: NIFEdipine 10 MG CAP PO SCH (20:54)
[2018-08-20] MEDS: IBUPROFEN 600 MG TAB PO SCH ×3 (00:33→13:00)
[2018-08-20 04:15] VITALS: BP 143/91; PULSE 61; RESP 18
[2018-08-20] MEDS: LACTATED RINGER'S 1,000 ML IV SCH (05:53)
[2018-08-20] MEDS: MAGNESIUM SULFATE 20 GM/500 ML 500 ML IV SCH (06:15)
[2018-08-20 08:15] VITALS: BP 135/85; PULSE 66; RESP 18
[2018-08-20] MEDS ORDERED: DIPHTH/TET/ACEL PERTUSS (ADULT) 0.5 ML VIAL IM* ONE (09:00)
[2018-08-20] MEDS: NIFEdipine 10 MG CAP PO SCH (09:00)
[2018-08-20] MEDS: SENNA/DOCUSATE NA (8.6MG/50MG) TAB PO SCH (10:40)
--- NOTE | 2018-08-20 10:42 | DS ---
Date/Time of Note Date/Time of Note DATE: 08/20/18 TIME: 10:41 Obstetrical Discharge Record Final Diagnosis Final Diagnosis: Term delivered Vaginal Delivery Obstetrical Delivery: Spontaneous Complications Preg induced Hypertension Induction: Yes Condition on Discharge Physical Assessment Voiding: Yes Fundus: Firm Calf Tenderness: No Patient Condition: Stable GUNNER ALCALA Aug 20, 2018 10:42
[2018-08-20] MEDS ORDERED: NIFE10CA PO (10:43)
== END 2018-08-20 15:15 | disposition home or self-care (01) | DRG 807 ==
LOC: L-D 12:12 → PP1 08-18 18:09
PROVIDERS: ADMIT Obstetrics & Gynecology; ATTEND Obstetrics & Gynecology
PROC: 3E033VJ Introduction of Other Hormone into Peripheral Vein, Percutaneous Approach (ICD-10-PCS; 2018-08-16)
PROC: 3E0E7GC Introduction of Other Therapeutic Substance into Products of Conception, Via Natural or Artificial Opening (ICD-10-PCS; 2018-08-17)
PROC: 10H07YZ Insertion of Other Device into Products of Conception, Via Natural or Artificial Opening (ICD-10-PCS; 2018-08-17)
PROC: 10E0XZZ Delivery of Products of Conception, External Approach (ICD-10-PCS; principal; 2018-08-18)
PROC: 0HQ9XZZ Repair Perineum Skin, External Approach (ICD-10-PCS; 2018-08-18)
DX: O14.94 Unspecified pre-eclampsia, complicating childbirth (principal); O76 Abnormality in fetal heart rate and rhythm complicating labor and delivery; O70.0 First degree perineal laceration during delivery; Z37.0 Single live birth; Z3A.39 39 weeks gestation of pregnancy
CPT/HCPCS: 62319; 76815; 80053; 81001; 83735; 84560; 85025; 85610; 85730; 86592; 86850; 86900; 86901; 87340; 90715; 99464; J0290; J0690; J1100; J2274; J2405; J2590; J3010; J3475; J7120

== ENCOUNTER 2018-09-10 11:10 | Emergency (ER) | payer OTHER ==
[~2018-09-10] VITALS: Ht 162.6 cm; Wt 110.2 kg
[~2018-09-10 11:10] MED LIST changes: +NIFE10CA PO
[2018-09-10 11:14] VITALS: BP 151/99; PULSE 137; RESP 19; Ht 162.6 cm; Wt 110.2 kg
[2018-09-10] MEDS ORDERED: ONDANSETRON (ODT) 4 MG TAB ODT STA (15:05)
[2018-09-10] MEDS ORDERED: ACETAMINOPHEN 325 MG TAB PO ONE (15:30)
[2018-09-10] MEDS ORDERED: CEPH-443 PO (16:47)
[2018-09-10] MEDS ORDERED: LIDOCAINE 1% (MPF) 5 ML VIAL IM ONE (17:00)
[2018-09-10] MEDS ORDERED: CEFTRIAXONE 1 GM INJ IM ONE (17:00)
--- NOTE | 2018-09-10 20:13 | ERD ---
ER Documentation Chief Complaint Chief Complaint flank/back pain, fever. diffculty urinating 5 days HPI 33-year-old female Chief Complaint: Urinary symptoms History of Present Illness: patient coming in today with complaint of urinary symptoms for 2 days. Associated symptoms include bilateral flank pain, increa sing pain/difficulty urinating over 5 days. Patient reports going to [facility] 3 days ago and given amoxicillin for urinary tract infection but symptoms have worsened . Patient currently breast-feeding. Patient gave 3 weeks ago. Review of systems: All systems were reviewed and are negative except for what is indicated in the history of present illness. Past Medical History: Gestational hypertension Social History: Patient denies tobacco, alcohol, elicit drug use Medications: Amoxicillin given by OB GEN for UTI 3 days ago medication for hypertension; Allergies: NKDA Social Concerns: Denies ROS All systems reviewed and are negative except as per history of present illness. Medications Home Meds Active Scripts Cephalexin* (Keflex*) 500 Mg Capsule, 500 MG PO QID PRN for urinary tract infection for 7 Days, CAP Prov:GODFREY BRANDT [facility] NURSE 09/10/18 Nifedipine* (Procardia*) 10 Mg Capsule, 10 MG PO BID for 14 Days, #30 CAP Prov:GUNNER ALCALA 08/20/18 Reported Medications Vits W-Ca,Fe,Fa(<1MG) ( Vitamins) 1 Tab Tablet, 1 TAB PO DAILY, TAB 08/28/15 Allergies Allergies: Coded Allergies: No Known Allergy (Unverified , 07/10/18) PMhx/Soc History of Surgery: No Anesthesia Reaction: No Hx Neurological Disorder: No Hx Respiratory Disorders: No Hx Cardiac Disorders: Yes (HTN) Hx Psychiatric Problems: No Hx Miscellaneous Medical Probl: Yes (left ovarian cyst,gestational diabetes,gestational HTN) Hx Alcohol Use: No Hx Substance Use: No Hx Tobacco Use: No Smoking Status: Never smoker Physical Exam Vitals Vital Signs Date Temp Pulse Resp B/P (MAP) Pulse Ox O2 O2 Flow FiO2 Time Delivery Rate 09/10/18 99.6 137 19 151/99 97 11:14 (116) Physical Exam Const: No acute distress Head: Atraumatic Eyes: Normal Conjunctiva ENT: Normal External Ears, Nose and Mouth. Neck: Full range of motion. No meningismus. Resp: Clear to auscultation bilaterally Cardio: Regular rate and rhythm, no murmurs Abd: Soft, non distended. Normal bowel sounds. Suprapubic tenderness. Skin: No petechiae or rashes Back: No midline. Positive CVA tenderness. Ext: No cyanosis, or edema Neur: Awake and alert Psych: Normal Mood and Affect Results 24 hrs Laboratory Tests Test 09/10/18 15:17 Urine Color YELLOW Urine Clarity CLOUDY Urine pH 5.0 Urine Specific [place] 1.015 Urine Ketones TRACE mg/dL Urine Nitrite NEGATIVE mg/dL Urine Bilirubin NEGATIVE mg/dL Urine Urobilinogen NEGATIVE mg/dL Urine Leukocyte Esterase 2+ Flavio/ul Urine Microscopic RBC 18 /HPF Urine Microscopic WBC > 182 /HPF Urine Squamous Epithelial Cells FEW /HPF Urine Bacteria FEW /HPF Urine Mucus FEW /HPF Urine Hemoglobin 2+ mg/dL Urine Glucose NEGATIVE mg/dL Urine Total Protein 1+ mg/dl Current Medications Medications Dose Sig/Leeroy Start Time Status Last (Trade) Ordered Route PRN Stop Time Admin Dose Reason Admin Ondansetron 4 mg ONCE STAT 09/10/18 DC 09/10/18 HCl (Zofran ODT 15:05 15:17 Odt) 09/10/18 15:06 650 mg ONCE ONCE 09/10/18 DC 09/10/18 Acetaminophen PO 15:30 15:17 (Tylenol 09/10/18 15:31 Tab) Ceftriaxone 1 gm ONCE ONCE 09/10/18 DC 09/10/18 Sodium IM 17:00 17:02 (Rocephin) 09/10/18 17:01 Lidocaine 2.1 ml ONCE ONCE 09/10/18 DC 09/10/18 (Xylocaine IM 17:00 17:02 1% (Mpf)) 09/10/18 17:01 Procedures/MDM ED course includes a thorough examination and history. ED course includes lab testing; urinalysis. ED course includes medication; acetaminophen for pain/very low-grade fever and ceftriaxone for antibiotic therapy. Low suspicion for genitourinary emergency that requires hospitalization, sepsis. Otherwise healthy patient presenting with constellation of symptoms likely representing urinary tract infection with hematuria as characterized by history, physical exam findings, lab findings. Urinalysis positive for bacteria, WBCs, RBCs, leukocyte esterase, hemoglobin, protein. No respiratory distress, otherwise relatively well appearing and nontoxic. Patient educated on diagnoses, prescriptions, follow-up care, return precautions. Strict return precautions given for worsening condition; questions answered discharge. Patient tolerating fluids, no signs of dehydration. Disposition for discharge with followup in 2 days with PCP/clinic; preferably [facility]. Departure Diagnosis: Primary Impression: UTI (urinary tract infection) Urinary tract infection type: site unspecified Hematuria presence: with hematuria Qualified Codes: N39.0 - Urinary tract infection, site not specified; R31.9 - Hematuria, unspecified Condition: Stable Patient Instructions: Understanding Urinary Tract Infections (UTIs) Referrals: [facility] YOU HAVE RECEIVED A MEDICAL SCREENING EXAM AND THE RESULTS INDICATE THAT YOU DO NOT HAVE A CONDITION THAT REQUIRES URGENT TREATMENT IN THE EMERGENCY DEPARTMENT. FURTHER EVALUATION AND TREATMENT OF YOUR CONDITION CAN WAIT UNTIL YOU ARE SEEN IN YOUR DOCTORS OFFICE WITHIN THE NEXT 1-2 DAYS. IT IS YOUR RESPONSIBILITY TO MAKE AN APPOINTMENT FOR FOLOW-UP CARE. IF YOU HAVE A PRIMARY DOCTOR --you should call your primary doctor and schedule an appointment IF YOU DO NOT HAVE A PRIMARY DOCTOR YOU CAN CALL OUR PHYSICIAN REFERRAL HOTLINE AT IF YOU CAN NOT AFFORD TO SEE A PHYSICIAN YOU CAN CHOSE FROM THE FOLLOWING [facility] [address] [facility]. [facility] [address] [email or web address] [facility]. [facility] [address] [facility] [facility] [address] [facility] [facility] [address] [facility]. [facility]. [address] [facility]. [facility] YOU HAVE RECEIVED A MEDICAL SCREENING EXAM AND THE RESULTS INDICATE THAT YOU DO NOT HAVE A CONDITION THAT REQUIRES URGENT TREATMENT IN THE EMERGENCY DEPARTMENT. FURTHER EVALUATION AND TREATMENT OF YOUR CONDITION CAN WAIT UNTIL YOU ARE SEEN IN YOUR DOCTORS OFFICE WITHIN THE NEXT 1-2 DAYS. IT IS YOUR RESPONSIBILITY TO MAKE AN APPOINTMENT FOR FOLOW-UP CARE. IF YOU HAVE A PRIMARY DOCTOR --you should call your primary doctor and schedule and appointment IF YOU DO NOT HAVE A PRIMARY DOCTOR YOU CAN CALL OUR PHYSICIAN REFERRAL HOTLINE AT . IF YOU CAN NOT AFFORD TO SEE A PHYSICIAN YOU CAN CHOSE FROM THE FOLLOWING [facility]: [facility] [address] [place] [address] [facility] [address] [place] [address] [facility] [address] [place] [address] Additional Instructions: Call your primary care doctor TOMORROW for an appointment during the next 2-3 days.See the doctor sooner or return here if your condition worsens before your appointment time. Return to ER for severe abdominal pain, bright blood in urine, fever over 100.3 not controlled medication, altered mental status, worsening severe flank pain. GODFREY BRANDT NP Sep 10, 2018 20:13
== END 2018-09-10 17:15 | disposition home or self-care (01) ==
LOC: FTE 11:10
DX: N39.0 Urinary tract infection, site not specified (principal)
CPT/HCPCS: 81001; 87086; 96372; J0696; Z7502; Z7610